=== PATIENT | male | born 1985 ===

== ENCOUNTER 2023-04-13 06:36 | Day surgery (SDC) | payer OTHER ==
[~2023-04-13] VITALS: Ht 167.6 cm; Wt 74.8 kg
[2023-04-13] MEDS ORDERED: PERCOCET 5-3251 EACH PO (12:21)
[2023-04-13] MEDS ORDERED: NEURONTIN300 MG PO (12:21)
[2023-04-13] MEDS ORDERED: POLY119PG PO (12:21)
== END 2023-04-13 15:50 | disposition home or self-care (01) ==
LOC: CIR.AMB 06:36
PROVIDERS: ATTEND Surgery
DX: K40.90 Unilateral inguinal hernia, without obstruction or gangrene, not specified as recurrent (principal); Z20.822 Contact with and (suspected) exposure to COVID-19
CPT/HCPCS: 49650; C1781